=== PATIENT | male | born 1980 | race Caucasian/White ===

== ENCOUNTER 2018-08-03 12:46 | Emergency (ER) | payer OTHER ==
--- NOTE | 2018-08-03 13:40 | EDPHY ---
H & P Time Seen by Provider: 08/03/18 13:39 HPI/ROS: CHIEF COMPLAINT: Right knee and ankle pain HISTORY OF PRESENT ILLNESS: Patient was in [facility] this afternoon and he was trying to get up with his leg straight when his sparring partner who weighs 100 lb more than him pressed on his knee when it was locked and he felt it buccal in go to almost a right angle with his lower leg valgus to his upper leg. Said he heard and felt a large pop. Presents with pain in the right knee and right ankle but no weakness or numbness in the foot. REVIEW OF SYSTEMS: No skin laceration and no hip symptoms. PAST MEDICAL HISTORY: Negative Social history: Nonsmoker General Appearance: Alert and conversant, cooperative. Normal range of motion of the right hip knee and ankle. Compartments in the right thigh and lower leg are soft. Some mild swelling of the right knee compared to the left. His right knee has some pain medially at the joint line but is stable clinically to varus and valgus stress and anterior and posterior drawer and Timo's is negative. He does have a dorsalis pedis pulse in the right foot and normal motor and sensory there. No Achilles tenderness and no 5th metatarsal tenderness. No tenderness on lateral or medial malleolus. He is ambulatory with a limp. Does not have any skin bruising or laceration. Emergency Department course/MDM: X-rays personally reviewed. Patient does not have detectable neurovascular compromise distally but has a history concerning for actual knee dislocation; the patient repeatedly states that his knee bent in a valgus deformity at a severe angle with a popping sensation. CT angiography discussed and consented. 1555: Normal CTA of the lower extremity per Dr. Harding. Knee immobilizer, symptomatic treatment, rest ice immobilization, orthopedic follow-up. More likely to be sprain. Smoking Status: Never smoked Constitutional: Initial Vital Signs Temperature (C) 36.6 C 08/03/18 12:57 Heart Rate 91 08/03/18 12:57 Respiratory Rate 16 08/03/18 12:57 Blood Pressure 102/57 L 08/03/18 12:57 O2 Sat (%) 94 08/03/18 12:57 O2 Delivery Mode Room Air Allergies/Adverse Reactions: No Known Allergies Allergy (Unverified 08/03/18 12:57) Home Medications: Medication Instructions Recorded NK [No Known Home Meds] 08/03/18 MDM/Departure - MDM Imaging: Discussed imaging studies w/ call or contact centre manager Radiologist - Depart Disposition: Home, Routine, Self-Care Clinical Impression: Sprain of right knee Qualifiers: Encounter type: initial encounter Involved ligament of knee: medial collateral ligament Qualified Code(s): S83.411A - Sprain of medial collateral ligament of right knee, initial encounter Right ankle sprain Qualifiers: Encounter type: initial encounter Involved ligament of ankle: unspecified ligament Qualified Code(s): S93.401A - Sprain of unspecified ligament of right ankle, initial encounter Condition: Good Instructions: Ankle Sprain (ED), Knee Sprain (ED) Additional Instructions: Please follow-up in the office this week with Dr. Molina orthopedist. Referrals: Gildardo Molina MD [Medical Doctor] - As per Instructions
[2018-08-03] MEDS ORDERED: IOPAMIDOL (ISOVUE 370) 100 ML BTL IV ONE (14:54)
[2018-08-03 16:18] VITALS: BP 100/58
== END 2018-08-03 16:16 | disposition home or self-care (01) ==
DX: S83.411A Sprain of medial collateral ligament of right knee, initial encounter (principal); S93.401A Sprain of unspecified ligament of right ankle, initial encounter; X50.9XXA Other and unspecified overexertion or strenuous movements or postures, initial encounter; Y92.89 Other specified places as the place of occurrence of the external cause; Y99.9 Unspecified external cause status; Y93.75 Activity, martial arts
CPT/HCPCS: 82435-PO; 82565-PO; 82947-PO; 84132-PO; 84295-PO; 84520-PO; 85014-ER; L1832; Q9967